=== PATIENT | male | born 1940 | race American Indian/Alaskan Native ===

== ENCOUNTER 2017-07-21 07:33 | Day surgery (SDC) | payer MEDICARE, OTHER ==
[~2017-07-21 07:33] MED LIST: Midazolam 1 MG/ML 2 ML SDV ONE; fentaNYL 100 MCG/2 ML SDV ONE
[2017-07-21] MEDS ORDERED: fentaNYL 100 MCG/2 ML SDV IV ONE ×3 (07:34→08:41)
[2017-07-21] MEDS ORDERED: Midazolam 1 MG/ML 2 ML SDV IV ONE ×3 (07:34→08:43)
[2017-07-21] MEDS ORDERED: Sodium Chloride 0.9% 10 ML Syringe FLUSH SCH (07:45)
[2017-07-21] MEDS ORDERED: Dextrose 5%-0.45% NaCl 1,000 ML IV SCH (07:45)
--- NOTE | 2017-07-21 11:02 | OR ---
DATE: 07/21/2017 PROCEDURE: Esophagogastroduodenoscopy and multiple pinch biopsies. INSTRUMENT USED: GIF-H180 Olympus video panendoscope. PREMEDICATIONS: No oral topical anesthesia used. Fentanyl 100 mcg intravenous, Versed 1.5 mg intravenous. Nasal 2 L O2 cannula. The procedure was done under pulse oximetry, BP recording, and potline monitor. INDICATION: The patient with progressive solid dysphagia, unexplained, not responsive to medical measures. Esophagogastroduodenoscopy is performed for detection of any active erosive lesions, Raines's esophagus and/or malignancy also under consideration, H. pylori status to be determined, esophageal dilatations if indicated, endoscopic hemostasis therapy if needed. DESCRIPTION OF PROCEDURE: The scope was passed with ease. Adequate visualization of the esophagus was made from proximal to distal areas. No upper esophageal lesions identified. No uphill or downhill esophageal varices. No Breanna-Lopez tear. No evidence of erosive esophagitis by [place] criteria. Large sliding hiatal hernia was noted. There was some deformity and stricture of the distal esophagus, but the tip of the scope was passed with ease to visualize the gastric mucosa. No proximal gastric varices noted. Gastric fundus examination by retroflexion showed no polypoid lesions. No gastric ulcer, malignant mass, or vascular ectasia identified. Duodenal bulb showed no ulcer. Visualized second part of the duodenum was unremarkable. Few scattered erosions were noted in the gastric antrum. Multiple pinch biopsies were taken from the gastric antrum and proximal body and sent for PyloriTek test for H. pylori, and if negative in an hour, tissues to be sent for histopathology. No bleeding was noted from any of the visualized areas at the completion of examination. Photographs of the duodenal bulb, gastric antrum, fundus, and distal esophagus. IMPRESSION: 1. Gastric antral erosions. 2. Sliding hiatal hernia. 3. Peptic esophageal stricture. The patient tolerated the procedure well. [facility] /[id number]
--- NOTE | 2017-07-21 11:02 | OR ---
DATE: 07/21/2017 PROCEDURE: Esophageal dilatation. INSTRUMENT USED: Baron Bougie dilator, Belgian size #48. PREMEDICATIONS: Done after EGD. INDICATION: Peptic esophageal stricture. DESCRIPTION OF PROCEDURE: Esophageal dilatation was done with ease using dilator Belgian size #48. No blood was noted at dilated tip after completion. IMPRESSION: Peptic esophageal stricture. The patient tolerated the procedure well. [facility] /[id number]
[2017-07-21 11:05] VITALS: BP 107/60
--- NOTE | 2017-07-21 11:11 | LETTER ---
07/21/2017 Ky Dixon MD [facility] [address] [place] [address] RE: ROMEL CAMERON : [address] Dixon: Mr. Romel Cameron had esophagogastroduodenoscopy and esophageal dilatation done today, tolerated well. I herewith send a copy of the endoscopy note and photographs for your review. He is put on omeprazole 20 mg p.o. daily. Thank you. Sincerely, MOD[facility] /[id number]
== END 2017-07-21 11:00 | disposition home or self-care (01) ==
LOC: DL.ENDO 07:33
PROVIDERS: ATTEND Internal Medicine Gastroenterology
DX: K22.2 Esophageal obstruction (principal); K44.9 Diaphragmatic hernia without obstruction or gangrene; K25.9 Gastric ulcer, unspecified as acute or chronic, without hemorrhage or perforation; E78.5 Hyperlipidemia, unspecified; I12.9 Hypertensive chronic kidney disease with stage 1 through stage 4 chronic kidney disease, or unspecified chronic kidney disease; N18.9 Chronic kidney disease, unspecified; K21.9 Gastro-esophageal reflux disease without esophagitis
CPT/HCPCS: 87077; 88305; J2250; J3010; J7042; J7050

== ENCOUNTER 2017-08-31 19:22 | Emergency (ER) | payer MEDICARE, OTHER ==
[2017-08-31 19:38] VITALS: BP 121/62
--- NOTE | 2017-08-31 19:55 | EDM.PDOC ---
ED HPI GENERAL MEDICAL PROBLEM - General Chief Complaint: Genitourinary Problem Stated Complaint: [id number] urinating blood after prostate biopsy Time Seen by Provider: 08/31/17 19:45 Source of Information: Reports: Patient History Limitations: Reports: No Limitations - History of Present Illness INITIAL COMMENTS - FREE TEXT/NARRATIVE: This 76 yo male patient reports to the ED with one episode of hematuria about 45 minutes prior to arrival in the ED. The patient reports he had a prostate biopsy 2 days ago, has been doing fine until today and had only the 1 episode of blood in his urine. The patient reports no abdominal pain and no feeling of retaining urine. Onset: Today Duration: Minutes: Severity: Mild Improves with: Reports: None Worsens with: Reports: None Associated Symptoms: Reports: No Other Symptoms - Related Data Allergies Allergy/AdvReac Type Severity Reaction Status Date / Time No Known Allergies Allergy Verified 08/31/17 19:38 Home Meds: Home Meds Calcium/Vit B12/FA/Pyridoxine [Folic Acid-Vit B6-Vit B12 Tab] 1 mg PO DAILY 09/11 [History] Carboxymethylcellulos/Glycerin [Refresh Optive Eye Drops] 1 drop EYEBOTH Q2HR PRN 09/30/14 [History] Cholecalciferol (Vitamin D3) [Vitamin D3] 2,000 units PO DAILY 09/30/14 [History ] Ferrous Sulfate 325 mg PO BIDM 09/30/14 [History] Losartan [Cozaar] 50 mg PO DAILY 09/30/14 [History] Multivitamin [Multivitamins] 2 tab PO DAILY 09/30/14 [History] Clindamycin Phosphate [Cleocin T 1% Lotion] 1 applic TOP DAILY 07/20/17 [History ] Doxepin [Doxepin HCl] 25 mg PO DAILY 07/20/17 [History] Glucosamine/Chondro Lebron A [Glucosamine-Chondroit Cplt] 1 each PO DAILY 07/20/17 [ History] Melatonin 1 mg PO DAILY PRN 07/20/17 [History] atorvaSTATin [Lipitor] 10 mg PO BEDTIME 07/20/17 [History] Past Medical History HEENT History: Reports: Macular Degeneration Other HEENT History: Upper dentures Cardiovascular History: Reports: High Cholesterol, Hypertension Gastrointestinal History: Reports: Diverticulosis, GERD, GI Bleed Genitourinary History: Reports: BPH, Renal Disease, Other (See Below) Other Genitourinary History: DX of prostate cancer. Nodule on prostate. Kidney disease. HX of amyloidosis, had stem cell transplant. Erectile dysfunction Musculoskeletal History: Reports: Osteoarthritis, Other (See Below) Other Musculoskeletal History: shoulder dislocation Neurological History: Reports: None Psychiatric History: Reports: None Endocrine/Metabolic History: Reports: None Hematologic History: Reports: Anemia Dermatologic History: Reports: None - Infectious Disease History Infectious Disease History: Reports: Mumps - Past Surgical History HEENT Surgical History: Reports: None Respiratory Surgical History: Reports: None GI Surgical History: Reports: None Male Surgical History: Reports: None Musculoskeletal Surgical History: Reports: Other (See Below) Other Musculoskeletal Surgeries/Procedures:: Ankle surgery in 1999, has pin in ankle Social & Family History - Family History Family Medical History: Noncontributory - Tobacco Use Smoking Status *Q: Never Smoker Second Hand Smoke Exposure: No - Caffeine Use Caffeine Use: Reports: Coffee, Soda, Tea Caffeine Use Comment: 4-5 cups daily - Alcohol Use Days Per Week of Alcohol Use: 0 - Recreational Drug Use Recreational Drug Use: No ED ROS GENERAL - Review of Systems Review Of Systems: ROS reveals no pertinent complaints other than HPI. ED EXAM, RENAL/ - Physical Exam Exam: See Below Exam Limited By: No Limitations General Appearance: Alert, WD/WN, No Apparent Distress Eye Exam: Bilateral Eye: EOMI, Normal Inspection, PERRL Ears: Normal External Exam, Normal Canal, Hearing Grossly Normal, Normal TMs Nose: Normal Inspection, Normal Mucosa, No Blood Throat/Mouth: Normal Inspection, Normal Lips, Normal Teeth, Normal Gums, Normal Oropharynx, Normal Voice, No Airway Compromise Head: Atraumatic, Normocephalic Neck: Normal Inspection, Supple, Non-Tender, Full Range of Motion Respiratory/Chest: No Respiratory Distress, Lungs Clear, Normal Breath Sounds, No Accessory Muscle Use, Chest Non-Tender Cardiovascular: Normal Peripheral Pulses, Regular Rate, Rhythm, No Edema, No Gallop, No JVD, No Murmur, No Rub GI/Abdominal: Normal Bowel Sounds, Soft, Non-Tender, No Organomegaly, No Distention, No Abnormal Bruit, No Mass (Male) Exam: Deferred Rectal (Males) Exam: Deferred Neurological: Alert, Oriented Psychiatric: Normal Affect, Normal Mood Skin Exam: Warm, Dry, Intact, Normal Color, No Rash Lymphatic: No Adenopathy Course - Vital Signs Last Recorded V/S: Last Vital Signs Temp 36.5 C 08/31/17 19:26 Pulse 68 08/31/17 19:26 Resp 20 08/31/17 19:26 BP 121/62 08/31/17 19:26 Pulse Ox 98 08/31/17 19:26 - Orders/Labs/Meds Orders: Active Orders 24 hr Category Date Time Status UA W/MICROSCOPIC [URIN] Stat Lab 08/31/17 20:04 Ordered Labs: Laboratory Tests 08/31/17 Range/Units 20:04 Urine Color Dark yellow (YELLOW) Urine Appearance Cloudy (CLEAR) Urine pH 6.0 (5.0-9.0) Ur Specific [place] 1.020 (1.005-1.030) Urine Protein 100 H (NEGATIVE) Urine Glucose (UA) Negative (NEGATIVE) Urine Ketones Trace H (NEGATIVE) Urine Occult Blood Large H (NEGATIVE) Urine Nitrite Negative (NEGATIVE) Urine Bilirubin Negative (NEGATIVE) Urine Urobilinogen 0.2 (0.2-1.0) mg/dL Ur Leukocyte Esterase Negative (NEGATIVE) Urine RBC Semi-packed H /HPF Urine WBC 0-5 (0-5/HPF) /HPF Ur Epithelial Cells Occasional /HPF Urine Bacteria Moderate H (0-FEW/HPF) /HPF Departure - Departure Time of Disposition: 20:39 Disposition: Home, Self-Care 01 Condition: Fair Clinical Impression: Hematuria Qualifiers: Hematuria type: unspecified type Qualified Code(s): R31.9 - Hematuria, unspecified Post-op bleeding Qualifiers: Surgical complication system/body Area: genitourinary Procedure type: genitourinary Qualified Code(s): N99.820 - Postprocedural hemorrhage of a genitourinary system organ or structure following a genitourinary system procedure - Discharge Information Instructions: Hematuria, Adult Forms: ED Department Discharge Care Plan Goals: The patient was advised of the examination and lab results during the visit. The patient was encouraged to contact his urologist in the morning. If the patient has any additional symptoms or concerns, the patient should visit his primary care facility or return to the emergency department. - My Orders Last 24 Hours: My Active Orders 08/31/17 20:04 UA W/MICROSCOPIC [URIN] Stat - Assessment/Plan Last 24 Hours: My Active Orders 08/31/17 20:04 UA W/MICROSCOPIC [URIN] Stat
== END 2017-08-31 20:45 | disposition home or self-care (01) ==
LOC: DL.ED 19:22
DX: N99.820 Postprocedural hemorrhage of a genitourinary system organ or structure following a genitourinary system procedure (principal); R31.9 Hematuria, unspecified; I10 Essential (primary) hypertension; E78.00 Pure hypercholesterolemia, unspecified; Z79.899 Other long term (current) drug therapy
CPT/HCPCS: 81001; 99282; 99283

== ENCOUNTER 2019-03-18 08:13 | Emergency (ER) | payer MEDICARE, OTHER ==
[2019-03-18 08:31] VITALS: BP 144/77; PULSE 72
--- NOTE | 2019-03-18 09:04 | EDM.PDOC ---
ED HPI GENERAL MEDICAL PROBLEM - General Chief Complaint: Lower Extremity Injury/Pain Stated Complaint: LEFT SIDE PAIN Left Hip Pain Score (Numeric/FACES): 10 - Related Data Allergies Allergy/AdvReac Type Severity Reaction Status Date / Time No Known Allergies Allergy Verified 03/18/19 08:21 Home Meds: Home Meds Calcium/Vit B12/FA/Pyridoxine [Folic Acid-Vit B6-Vit B12 Tab] 1 mg PO DAILY 09/11 [History] Carboxymethylcellulos/Glycerin [Refresh Optive Eye Drops] 1 drop EYEBOTH Q2HR PRN 09/30/14 [History] Cholecalciferol (Vitamin D3) [Vitamin D3] 2,000 units PO DAILY 09/30/14 [History ] Ferrous Sulfate 325 mg PO BIDM 09/30/14 [History] Losartan [Cozaar] 50 mg PO DAILY 09/30/14 [History] Multivitamin [Multivitamins] 1 tab PO DAILY 09/30/14 [History] Clindamycin Phosphate [Cleocin T 1% Lotion] 1 applic TOP DAILY 07/20/17 [History ] Doxepin [Doxepin HCl] 25 mg PO DAILY 07/20/17 [History] Glucosamine/Chondro Lebron A [Glucosamine-Chondroit Cplt] 1 each PO DAILY 07/20/17 [ History] Melatonin 1 mg PO BEDTIME PRN 07/20/17 [History] atorvaSTATin [Lipitor] 10 mg PO BEDTIME 07/20/17 [History] Acetaminophen 500 mg PO Q6HR PRN 03/18/19 [History] Gabapentin [Neurontin] 100 mg PO TID PRN 03/18/19 [History] Past Medical History HEENT History: Reports: Macular Degeneration Other HEENT History: Upper dentures Cardiovascular History: Reports: High Cholesterol, Hypertension Gastrointestinal History: Reports: Diverticulosis, GERD, GI Bleed Genitourinary History: Reports: BPH, Renal Disease, Other (See Below) Other Genitourinary History: DX of prostate cancer. Nodule on prostate. Kidney disease. HX of amyloidosis, had stem cell transplant. Erectile dysfunction Musculoskeletal History: Reports: Osteoarthritis, Other (See Below) Other Musculoskeletal History: shoulder dislocation Neurological History: Reports: None Psychiatric History: Reports: None Endocrine/Metabolic History: Reports: None Hematologic History: Reports: Anemia Dermatologic History: Reports: None - Infectious Disease History Infectious Disease History: Reports: Mumps - Past Surgical History HEENT Surgical History: Reports: None Respiratory Surgical History: Reports: None GI Surgical History: Reports: None Male Surgical History: Reports: None Musculoskeletal Surgical History: Reports: Other (See Below) Other Musculoskeletal Surgeries/Procedures:: Ankle surgery in 1999, has pin in ankle Social & Family History - Family History Family Medical History: Noncontributory - Tobacco Use Smoking Status *Q: Never Smoker - Caffeine Use Caffeine Use: Reports: Coffee Caffeine Use Comment: at least 4 cups daily - Recreational Drug Use Recreational Drug Use: No Course - Vital Signs Last Recorded V/S: Last Vital Signs Temp 36.6 C 03/18/19 08:27 Pulse 72 03/18/19 08:27 Resp 18 03/18/19 08:27 BP 144/77 H 03/18/19 08:27 Pulse Ox 100 03/18/19 08:27 Departure - Departure Time of Disposition: 09:01 Disposition: Home, Self-Care 01 Condition: Good Clinical Impression: Back pain of lumbar region with sciatica - Discharge Information *PRESCRIPTION DRUG MONITORING PROGRAM REVIEWED*: Not Applicable *COPY OF PRESCRIPTION DRUG MONITORING REPORT IN PATIENT VONDA: Not Applicable Instructions: Sciatica, [id number] Forms: ED Department Discharge Additional Instructions: PT prescription was given to you. Give to your Physical Therapist. Tramadol - pain medications; only take one at night. Continue gabapentin and tylenol as prescribed Heat or ice frequently. See you PCP again next week or two
--- NOTE | 2019-03-18 09:23 | EDM.PDOC ---
Scribed by Malini Coleman 03/18/19 0919 for Luisa Connors NP ED HPI GENERAL MEDICAL PROBLEM - General Chief Complaint: Lower Extremity Injury/Pain Stated Complaint: LEFT SIDE PAIN Time Seen by Provider: 03/18/19 08:35 Source of Information: Reports: Patient, RN, RN Notes Reviewed History Limitations: Reports: No Limitations - History of Present Illness INITIAL COMMENTS - FREE TEXT/NARRATIVE: Patient presents to ER with complaint of low back pain, sciatica down left leg for 1 week. He seen his primary last week and had x-rays of right hip and back. He was put on Gabapentin and has been on it for 2 days. He took Tylenol last night. He has had no trauma. Left back, hip pain into his left leg posterior and down to foot and ankle. He has had no recent trauma. It feels better sitting , worse when standing or laying flat. He has a history of hypertension. His leg feet feel weak; which he feels is due to pain; he is uses his walker. Not sleeping at night; due to pain. Onset: Gradual Duration: Constant Location: Reports: Back Quality: Reports: Ache Severity: Mild Improves with: Reports: None Worsens with: Reports: None Associated Symptoms: Reports: No Other Symptoms Left Hip Pain Score (Numeric/FACES): 10 - Related Data Allergies Allergy/AdvReac Type Severity Reaction Status Date / Time No Known Allergies Allergy Verified 03/18/19 08:21 Home Meds: Home Meds Calcium/Vit B12/FA/Pyridoxine [Folic Acid-Vit B6-Vit B12 Tab] 1 mg PO DAILY 09/11 [History] Carboxymethylcellulos/Glycerin [Refresh Optive Eye Drops] 1 drop EYEBOTH Q2HR PRN 09/30/14 [History] Cholecalciferol (Vitamin D3) [Vitamin D3] 2,000 units PO DAILY 09/30/14 [History ] Ferrous Sulfate 325 mg PO BIDM 09/30/14 [History] Losartan [Cozaar] 50 mg PO DAILY 09/30/14 [History] Multivitamin [Multivitamins] 1 tab PO DAILY 09/30/14 [History] Clindamycin Phosphate [Cleocin T 1% Lotion] 1 applic TOP DAILY 07/20/17 [History ] Doxepin [Doxepin HCl] 25 mg PO DAILY 07/20/17 [History] Glucosamine/Chondro Lebron A [Glucosamine-Chondroit Cplt] 1 each PO DAILY 07/20/17 [ History] Melatonin 1 mg PO BEDTIME PRN 07/20/17 [History] atorvaSTATin [Lipitor] 10 mg PO BEDTIME 07/20/17 [History] Acetaminophen 500 mg PO Q6HR PRN 03/18/19 [History] Gabapentin [Neurontin] 100 mg PO TID PRN 03/18/19 [History] Past Medical History HEENT History: Reports: Macular Degeneration Other HEENT History: Upper dentures Cardiovascular History: Reports: High Cholesterol, Hypertension Gastrointestinal History: Reports: Diverticulosis, GERD, GI Bleed Genitourinary History: Reports: BPH, Renal Disease, Other (See Below) Other Genitourinary History: DX of prostate cancer. Nodule on prostate. Kidney disease. HX of amyloidosis, had stem cell transplant. Erectile dysfunction Musculoskeletal History: Reports: Osteoarthritis, Other (See Below) Other Musculoskeletal History: shoulder dislocation. 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 Neurological History: Reports: None Psychiatric History: Reports: None Endocrine/Metabolic History: Reports: None Hematologic History: Reports: Anemia Dermatologic History: Reports: None - Infectious Disease History Infectious Disease History: Reports: Mumps - Past Surgical History HEENT Surgical History: Reports: None Respiratory Surgical History: Reports: None GI Surgical History: Reports: None Male Surgical History: Reports: None Musculoskeletal Surgical History: Reports: Other (See Below) Other Musculoskeletal Surgeries/Procedures:: Ankle surgery in 1999, has pin in ankle Oncologic Surgical History: Reports: Other (See Below) (stem cell transplant) Social & Family History - Family History Family Medical History: Noncontributory - Tobacco Use Smoking Status *Q: Never Smoker - Caffeine Use Caffeine Use: Reports: Coffee Caffeine Use Comment: at least 4 cups daily - Recreational Drug Use Recreational Drug Use: No Review of Systems - Review of Systems Review Of Systems: ROS reveals no pertinent complaints other than HPI. Constitutional: Reports: No Symptoms ED EXAM, GENERAL - Physical Exam Exam: See Below Exam Limited By: No Limitations General Appearance: Alert, WD/WN, No Apparent Distress Head: Atraumatic, Normocephalic Respiratory/Chest: No Respiratory Distress, Lungs Clear, Normal Breath Sounds, No Accessory Muscle Use, Chest Non-Tender Cardiovascular: Normal Peripheral Pulses, Regular Rate, Rhythm, No Edema, No Gallop, No JVD, No Murmur, No Rub GI/Abdominal: Normal Bowel Sounds, Soft, Non-Tender, No Organomegaly, No Distention, No Abnormal Bruit, No Mass Back Exam: Other (5/5 psoas, knee and ankle. Sensation intact. No pain with palpation of the left hip. Pain down left leg begins when standing. ) Extremities: Normal Inspection Skin Exam: Warm, Dry Course - Vital Signs Last Recorded V/S: Last Vital Signs Temp 36.6 C 03/18/19 08:27 Pulse 72 03/18/19 08:27 Resp 18 03/18/19 08:27 BP 144/77 H 03/18/19 08:27 Pulse Ox 100 03/18/19 08:27 - Re-Assessments/Exams Free Text/Narrative Re-Assessment/Exam: 03/18/19 09:21 He has had left hip and lumbar xrays per patient at his PCP; Im not able to view those records. Non tender to palpate back or left hip. I feel he needs a little more time on his gabapentin and then gave him 4 tabs of tramadol to use at night only until his gabapentin start to work. I ordered PT and he is to return to his PCP. Departure - Departure Time of Disposition: 09:23 Disposition: Home, Self-Care 01 Clinical Impression: Back pain of lumbar region with sciatica - Discharge Information Instructions: Sciatica, [id number] Forms: ED Department Discharge Additional Instructions: PT prescription was given to you. Give to your Physical Therapist. Tramadol - pain medications; only take one at night. Continue gabapentin and tylenol as prescribed Heat or ice frequently. See you PCP again next week or two I have read and agree with the documentation that has been completed regarding this visit. By signing this record, I attest that the documentation was completed in my physical presence and is an accurate record of the encounter.
== END 2019-03-18 09:25 | disposition home or self-care (01) ==
LOC: DL.ED 08:13
DX: M54.42 Lumbago with sciatica, left side (principal); E78.00 Pure hypercholesterolemia, unspecified; I10 Essential (primary) hypertension; D64.9 Anemia, unspecified; Z79.899 Other long term (current) drug therapy
CPT/HCPCS: 99283

== ENCOUNTER 2019-06-10 00:08 | Emergency (ER) | payer MEDICARE, OTHER ==
[2019-06-10 00:18] VITALS: BP 135/81; PULSE 59
[2019-06-10] MEDS ORDERED: LORazepam 1 MG Tab PO ONE (00:18)
--- NOTE | 2019-06-10 00:24 | EDM.PDOC ---
ED HPI GENERAL MEDICAL PROBLEM - General Chief Complaint: General Stated Complaint: AMBULANCE Time Seen by Provider: 06/10/19 00:22 Source of Information: Reports: Patient History Limitations: Reports: No Limitations - History of Present Illness INITIAL COMMENTS - FREE TEXT/NARRATIVE: states vomited x 3 tonight, hand feeling numb and shaky. no CP/SOB/STEWARD. feels nauseous and not well. - Related Data Allergies Allergy/AdvReac Type Severity Reaction Status Date / Time No Known Allergies Allergy Verified 06/10/19 00:18 Home Meds: Home Meds Jakob/Vit B12/Folic Acid/Vit B6 [Folic Acid-Vit B6-Vit B12 Tab] 1 mg PO DAILY 09/11 [History] Carboxymethylcellulos/Glycerin [Refresh Optive Eye Drops] 1 drop EYEBOTH Q2HR PRN 09/30/14 [History] Cholecalciferol (Vitamin D3) [Vitamin D3] 2,000 units PO DAILY 09/30/14 [History ] Ferrous Sulfate 325 mg PO BIDM 09/30/14 [History] Losartan [Cozaar] 50 mg PO DAILY 09/30/14 [History] Multivitamin [Multivitamins] 1 tab PO DAILY 09/30/14 [History] Clindamycin Phosphate [Cleocin T 1% Lotion] 1 applic TOP DAILY 07/20/17 [History ] Doxepin [Doxepin HCl] 25 mg PO DAILY 07/20/17 [History] Glucosamine/Chondro Lebron A [Glucosamine-Chondroit Cplt] 1 each PO DAILY 07/20/17 [ History] Melatonin 1 mg PO BEDTIME PRN 07/20/17 [History] atorvaSTATin [Lipitor] 10 mg PO BEDTIME 07/20/17 [History] Acetaminophen 500 mg PO Q6HR PRN 03/18/19 [History] Gabapentin [Neurontin] 100 mg PO TID PRN 03/18/19 [History] Past Medical History HEENT History: Reports: Macular Degeneration Other HEENT History: Upper dentures Cardiovascular History: Reports: High Cholesterol, Hypertension Gastrointestinal History: Reports: Diverticulosis, GERD, GI Bleed Genitourinary History: Reports: BPH, Renal Disease, Other (See Below) Other Genitourinary History: DX of prostate cancer. Nodule on prostate. Kidney disease. HX of amyloidosis, had stem cell transplant. Erectile dysfunction Musculoskeletal History: Reports: Osteoarthritis, Other (See Below) Other Musculoskeletal History: shoulder dislocation. 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 Neurological History: Reports: None Psychiatric History: Reports: None Endocrine/Metabolic History: Reports: None Hematologic History: Reports: Anemia Dermatologic History: Reports: None - Infectious Disease History Infectious Disease History: Reports: Mumps - Past Surgical History HEENT Surgical History: Reports: None Respiratory Surgical History: Reports: None GI Surgical History: Reports: None Male Surgical History: Reports: None Musculoskeletal Surgical History: Reports: Other (See Below) Other Musculoskeletal Surgeries/Procedures:: Ankle surgery in 1999, has pin in ankle Oncologic Surgical History: Reports: Other (See Below) (stem cell transplant) Social & Family History - Family History Family Medical History: Noncontributory - Caffeine Use Caffeine Use: Reports: Coffee Caffeine Use Comment: at least 4 cups daily ED ROS GENERAL - Review of Systems Review Of Systems: Comprehensive ROS is negative, except as noted in HPI. ED EXAM, GENERAL - Physical Exam Exam: See Below Exam Limited By: No Limitations General Appearance: Alert, WD/WN, Anxious, Other (highly talkative, ) Eye Exam: Bilateral Eye: PERRL (pupils ER @ 4mm) Ears: Hearing Grossly Normal Throat/Mouth: Normal Voice, No Airway Compromise Head: Atraumatic Neck: Non-Tender, Full Range of Motion Respiratory/Chest: No Respiratory Distress Cardiovascular: Regular Rate, Rhythm GI/Abdominal: Soft, Non-Tender Neurological: Alert, Oriented, Normal Cognition, Normal Gait, No Motor/Sensory Deficits Psychiatric: Anxious Skin Exam: Warm, Dry, Normal Color Lymphatic: No Adenopathy Course - Vital Signs Last Recorded V/S: Last Vital Signs Temp 36.6 C 06/10/19 00:13 Pulse 59 L 06/10/19 00:13 Resp 16 06/10/19 00:13 BP 135/81 06/10/19 00:13 Pulse Ox 100 06/10/19 00:13 - Orders/Labs/Meds Labs: Laboratory Tests 06/10/19 06/10/19 Range/Units 00:30 00:30 WBC 7.0 (5.0-10.0) 10^3/uL RBC 3.12 L (4.6-6.2) 10^6/uL Hgb 10.5 L (14.0-18.0) g/dL Hct 32.3 L (40.0-54.0) % MCV 103.5 H (80-100) fL MCH 33.7 (27.0-34.0) pg MCHC 32.5 L (33.0-35.0) g/dL Plt Count 141 L (150-450) 10^3/uL Neut % (Auto) 65.1 (42.2-75.2) % Lymph % (Auto) 23.6 (20.5-50.1) % [place] % (Auto) 7.5 (2-8) % Eos % (Auto) 3.4 H (1.0-3.0) % Baso % (Auto) 0.4 (0.0-1.0) % Sodium 143 (135-145) mmol/L Potassium 4.1 (3.6-5.0) mmol/L Chloride 107 (101-111) mmol/L Carbon Dioxide 28.0 (21.0-31.0) mmol/L Anion Gap 12.1 BUN 30 H (7-18) mg/dL Creatinine 1.5 H (0.6-1.3) mg/dL Est Cr Clr Drug Dosing 40.56 mL/min Estimated GFR (MDRD) 45 BUN/Creatinine Ratio 20.00 Glucose 100 (74-105) mg/dL Calcium 9.1 (8.4-10.2) mg/dl Total Bilirubin 0.7 (0.2-1.0) mg/dL AST 19 (10-42) IU/L ALT 17 (10-60) IU/L Alkaline Phosphatase 79 (42-121) IU/L Troponin I 0.02 (0.00-0.02) ng/ml Total Protein 6.8 (6.7-8.2) g/dl Albumin 3.9 (3.2-5.5) g/dl Globulin 2.9 Albumin/Globulin Ratio 1.34 Meds: Medications Discontinued Medications Generic Name Dose Route Start Last Admin Trade Name Freq PRN Reason Stop Dose Admin Lorazepam 1 mg 06/10/19 00:18 06/10/19 00:28 Ativan PO 06/10/19 00:19 1 mg ONETIME ONE Administration - Re-Assessments/Exams Free Text/Narrative Re-Assessment/Exam: 06/10/19 01:17 results discussed with pt who is feeling fine now. states has been cleaning house and over worked himself. Departure - Departure Time of Disposition: 01:18 Disposition: Home, Self-Care 01 Condition: Good Clinical Impression: Reaction, situational, acute, to stress - Discharge Information Forms: ED Department Discharge Additional Instructions: 1) rest 2) avoid excess activities 3) follow up at clinic Sepsis Event Note - Evaluation Sepsis Screening Result: No Definite Risk - Focused Exam Vital Signs: Vital Signs Temp Pulse Resp BP Pulse Ox 06/10/19 00:13 36.6 C 59 L 16 135/81 100 Date Exam was Performed: 06/10/19 Time Exam was Performed: 01:16
[2019-06-10 00:59] LABS: ANION GAP 12.1
== END 2019-06-10 01:28 | disposition home or self-care (01) ==
LOC: DL.ED 00:08
DX: F43.9 Reaction to severe stress, unspecified (principal); I10 Essential (primary) hypertension; E78.00 Pure hypercholesterolemia, unspecified; K21.9 Gastro-esophageal reflux disease without esophagitis; Z79.899 Other long term (current) drug therapy
CPT/HCPCS: 36415; 80053; 84484; 85025; 99284; A9270

== ENCOUNTER 2019-09-21 14:39 | Emergency (ER) | payer MEDICARE, OTHER ==
[2019-09-21] MEDS ORDERED: Sodium Chloride 0.9% 10 ML Syringe FLUSH PRN (14:42)
[2019-09-21 15:08] VITALS: BP 81/52; PULSE 91
--- NOTE | 2019-09-21 15:10 | EDM.PDOC ---
ED HPI GENERAL MEDICAL PROBLEM - General Chief Complaint: General Stated Complaint: NAUSEA, WEAK, SHORTNESS OF BREATH, DHIREA Time Seen by Provider: 09/21/19 15:10 Source of Information: Reports: Patient, Family, RN, RN Notes Reviewed History Limitations: Reports: No Limitations - History of Present Illness INITIAL COMMENTS - FREE TEXT/NARRATIVE: Patient presents to ER with complaint of weight loss over the past few months, nausea, vomiting, stomach pain, diarrhea. Patient states he has noticed some blood in the diarrhea. States he has no appetite and is unable to keep food down. Patient states he has been doctoring with his primary care provider feels nothing is being done. Patient does state he does have an appointment with Dr. Peñaloza next week for a hiatal hernia. Patient states she Onset: Gradual - Related Data Allergies Allergy/AdvReac Type Severity Reaction Status Date / Time No Known Allergies Allergy Verified 09/21/19 15:04 Home Meds: Home Meds Jakob/Vit B12/Folic Acid/Vit B6 [Folic Acid-Vit B6-Vit B12 Tab] 1 mg PO DAILY 09/11 [History] Carboxymethylcellulos/Glycerin [Refresh Optive Eye Drops] 1 drop EYEBOTH Q2HR PRN 09/30/14 [History] Cholecalciferol (Vitamin D3) [Vitamin D3] 2,000 units PO DAILY 09/30/14 [History ] Ferrous Sulfate 325 mg PO BIDM 09/30/14 [History] Losartan [Cozaar] 50 mg PO DAILY 09/30/14 [History] Multivitamin [Multivitamins] 1 tab PO DAILY 09/30/14 [History] Clindamycin Phosphate [Cleocin T 1% Lotion] 1 applic TOP DAILY 07/20/17 [History ] Doxepin [Doxepin HCl] 25 mg PO DAILY 07/20/17 [History] Glucosamine/Chondro Lebron A [Glucosamine-Chondroit Cplt] 1 each PO DAILY 07/20/17 [ History] Melatonin 1 mg PO BEDTIME PRN 07/20/17 [History] atorvaSTATin [Lipitor] 10 mg PO BEDTIME 07/20/17 [History] Acetaminophen 500 mg PO Q6HR PRN 03/18/19 [History] Gabapentin [Neurontin] 100 mg PO TID PRN 03/18/19 [History] Past Medical History HEENT History: Reports: Macular Degeneration Other HEENT History: Upper dentures Cardiovascular History: Reports: High Cholesterol, Hypertension Gastrointestinal History: Reports: Diverticulosis, GERD, GI Bleed Genitourinary History: Reports: BPH, Renal Disease, Other (See Below) Other Genitourinary History: DX of prostate cancer. Nodule on prostate. Kidney disease. HX of amyloidosis, had stem cell transplant. Erectile dysfunction Musculoskeletal History: Reports: Osteoarthritis, Other (See Below) Other Musculoskeletal History: shoulder dislocation. 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 Neurological History: Reports: None Psychiatric History: Reports: None Endocrine/Metabolic History: Reports: None Hematologic History: Reports: Anemia Dermatologic History: Reports: None - Infectious Disease History Infectious Disease History: Reports: Mumps - Past Surgical History HEENT Surgical History: Reports: None Respiratory Surgical History: Reports: None GI Surgical History: Reports: None Male Surgical History: Reports: None Musculoskeletal Surgical History: Reports: Other (See Below) Other Musculoskeletal Surgeries/Procedures:: Ankle surgery in 1999, has pin in ankle Oncologic Surgical History: Reports: Other (See Below) Social & Family History - Family History Family Medical History: Noncontributory - Caffeine Use Caffeine Use: Reports: Coffee Caffeine Use Comment: at least 4 cups daily ED ROS GENERAL - Review of Systems Review Of Systems: Comprehensive ROS is negative, except as noted in HPI. ED EXAM, GENERAL - Physical Exam Exam: See Below Exam Limited By: No Limitations General Appearance: Alert, WD/WN, No Apparent Distress Eye Exam: Bilateral Eye: EOMI, Normal Inspection Ears: Normal External Exam, Hearing Grossly Normal Nose: Normal Inspection Throat/Mouth: Normal Inspection, Normal Voice, No Airway Compromise Head: Atraumatic, Normocephalic Neck: Normal Inspection, Supple, Non-Tender, Full Range of Motion Respiratory/Chest: No Respiratory Distress, Lungs Clear, No Accessory Muscle Use , Chest Non-Tender, Decreased Breath Sounds Cardiovascular: Normal Peripheral Pulses, Regular Rate, Rhythm, No Edema, No Gallop, No JVD, No Murmur, No Rub Peripheral Pulses: 2+: Radial (L), Radial (R) GI/Abdominal: Normal Bowel Sounds, Soft, Non-Tender, No Organomegaly, No Distention, No Abnormal Bruit, No Mass, Pelvis Stable (Male) Exam: Deferred Back Exam: Normal Inspection, Full Range of Motion, NT Extremities: Normal Inspection, Normal Range of Motion, Non-Tender, Normal Capillary Refill, No Pedal Edema Neurological: Alert, Oriented, CN II-XII Intact, Normal Cognition, Normal Gait, Normal Reflexes, No Motor/Sensory Deficits, Memory Loss Remote Events, Other Psychiatric: Normal Affect, Normal Mood Skin Exam: Warm, Dry, Intact, Normal Color, No Rash Lymphatic: No Adenopathy Course - Vital Signs Last Recorded V/S: Last Vital Signs Temp 97.2 F 09/21/19 15:04 Pulse 91 09/21/19 15:04 Resp 16 09/21/19 15:04 BP 81/52 L 09/21/19 15:04 Pulse Ox 99 09/21/19 15:04 - Orders/Labs/Meds Orders: Active Orders 24 hr Category Date Time Status EKG Documentation Completion [RC] STAT Care 09/21/19 15:25 Active Peripheral IV Care [RC] . DIRECTED Care 09/21/19 14:42 Active UA RFX PAZ AND CULT IF INDIC [URIN] Stat Lab 09/21/19 14:42 Ordered Lactated Ringers [Ringers, Lactated] 1,000 ml Med 09/21/19 16:54 Active IV .BOLUS Sodium Chloride 0.9% [Saline Flush] Med 09/21/19 14:42 Active 10 ml FLUSH ASDIRECTED PRN Peripheral IV Insertion Adult [OM.PC] Stat Oth 09/21/19 14:42 Ordered Medication Orders Lactated Ringer's (Ringers, Lactated) 1,000 mls @ 150 mls/hr IV .BOLUS ONE Stop: 09/21/19 23:33 Last Admin: 09/21/19 17:01 Dose: 150 mls/hr Sodium Chloride (Saline Flush) 10 ml FLUSH ASDIRECTED PRN PRN Reason: Keep Vein Open Last Admin: 09/21/19 16:15 Dose: 10 ml Labs: Laboratory Tests 09/21/19 09/21/19 Range/Units 14:55 14:55 WBC 7.5 (5.0-10.0) 10^3/uL RBC 2.76 L (4.6-6.2) 10^6/uL Hgb 9.3 L (14.0-18.0) g/dL Hct 27.9 L (40.0-54.0) % MCV 101.1 H (80-100) fL MCH 33.7 (27.0-34.0) pg MCHC 33.3 (33.0-35.0) g/dL Plt Count 167 (150-450) 10^3/uL Neut % (Auto) 61.8 (42.2-75.2) % Lymph % (Auto) 26.6 (20.5-50.1) % [place] % (Auto) 9.4 H (2-8) % Eos % (Auto) 1.9 (1.0-3.0) % Baso % (Auto) 0.3 (0.0-1.0) % Sodium 143 (136-145) mmol/L Potassium 4.0 (3.5-5.1) mmol/L Chloride 105 (98-107) mmol/L Carbon Dioxide 24 (21-32) mmol/L Anion Gap 18.0 H (7-13) mEq/L BUN 43 H (7-18) mg/dL Creatinine 1.95 H (0.70-1.30) mg/dL Est Cr Clr Drug Dosing 30.21 mL/min Estimated GFR (MDRD) 33 BUN/Creatinine Ratio 22.1 (No establ ref range) Glucose 127 H (74-99) mg/dL Calcium 8.9 (8.5-10.1) mg/dL Total Bilirubin 0.3 (0.2-1.0) mg/dL AST 17 (15-37) U/L ALT 23 (16-63) U/L Alkaline Phosphatase 75 (46-116) U/L Troponin I < 0.017 (0.000-0.056) ng/mL Total Protein 6.9 (6.4-8.2) g/dL Albumin 3.4 (3.4-5.0) g/dL Globulin 3.5 Albumin/Globulin Ratio 1.0 Meds: Medications Generic Name Dose Route Start Last Admin Trade Name Freq PRN Reason Stop Dose Admin Lactated Ringer's 1,000 mls @ 150 mls/hr 09/21/19 16:54 09/21/19 17:01 Ringers, Lactated IV 09/21/19 23:33 150 mls/hr .BOLUS ONE Administration Sodium Chloride 10 ml 09/21/19 14:42 09/21/19 16:15 Saline Flush FLUSH 10 ml ASDIRECTED PRN Administration Keep Vein Open Discontinued Medications Generic Name Dose Route Start Last Admin Trade Name Freq PRN Reason Stop Dose Admin Pantoprazole Sodium 80 mg 09/21/19 16:54 09/21/19 17:01 Protonix Iv IVPUSH 09/21/19 16:55 80 mg .BOLUS ONE Administration - Re-Assessments/Exams Free Text/Narrative Re-Assessment/Exam: 09/21/19 17:19 Discussed pt case with Dr. Linn who agreed to accept the patient for transfer to [facility]. Departure - Departure Time of Disposition: 17:20 Disposition: DC/Tfer to [facility] 02 Condition: Fair Clinical Impression: GI bleed Qualifiers: GI bleed type/associated pathology: melena Qualified Code(s): K92.1 - Melena - Discharge Information *PRESCRIPTION DRUG MONITORING PROGRAM REVIEWED*: No *COPY OF PRESCRIPTION DRUG MONITORING REPORT IN PATIENT VONDA: No Forms: ED Department Discharge, Interfacility Transfer EMTALA Sepsis Event Note - Evaluation Sepsis Screening Result: No Definite Risk - Focused Exam Vital Signs: Vital Signs Temp Pulse Resp BP Pulse Ox 09/21/19 15:04 97.2 F 91 16 81/52 L 99 Date Exam was Performed: 09/21/19 Time Exam was Performed: 17:19 - My Orders Last 24 Hours: My Active Orders 09/21/19 14:42 Peripheral IV Care [RC] . DIRECTED UA RFX PAZ AND CULT IF INDIC [URIN] Stat Sodium Chloride 0.9% [Saline Flush] 10 ml FLUSH ASDIRECTED PRN Peripheral IV Insertion Adult [OM.PC] Stat 09/21/19 15:25 EKG Documentation Completion [RC] STAT 09/21/19 16:54 Lactated Ringers [Ringers, Lactated] 1,000 ml IV .BOLUS - Assessment/Plan Last 24 Hours: My Active Orders 09/21/19 14:42 Peripheral IV Care [RC] . DIRECTED UA RFX PAZ AND CULT IF INDIC [URIN] Stat Sodium Chloride 0.9% [Saline Flush] 10 ml FLUSH ASDIRECTED PRN Peripheral IV Insertion Adult [OM.PC] Stat 09/21/19 15:25 EKG Documentation Completion [RC] STAT 09/21/19 16:54 Lactated Ringers [Ringers, Lactated] 1,000 ml IV .BOLUS
[2019-09-21 15:32] LABS: CHLORIDE,CL 105 mmol/L (98-107); SODIUM,NA 143 mmol/L (136-145)
[2019-09-21] MEDS ORDERED: Lactated Ringers 1,000 ML IV ONE (16:54)
[2019-09-21] MEDS ORDERED: Pantoprazole 40 MG Vial IVPUSH ONE (16:54)
== END 2019-09-21 17:27 ==
LOC: DL.ED 14:39
DX: K92.1 Melena (principal); I10 Essential (primary) hypertension; E78.00 Pure hypercholesterolemia, unspecified; M19.90 Unspecified osteoarthritis, unspecified site; Z79.899 Other long term (current) drug therapy
CPT/HCPCS: 36415; 80053; 82272; 84484; 85025; 93005; 96374; 99284; 99285-25; C9113; J7120

== ENCOUNTER 2020-08-06 05:01 | Emergency (ER) | payer MEDICARE, OTHER ==
--- NOTE | 2020-08-06 07:19 | EDM.PDOC ---
ED HPI GENERAL MEDICAL PROBLEM - General Chief Complaint: Gastrointestinal Problem Stated Complaint: VOMMITING/DIARRHEA DOESNT FEEL WELL Time Seen by Provider: 08/06/20 07:18 Source of Information: Reports: Patient, Old Records, RN, RN Notes Reviewed History Limitations: Reports: No Limitations - History of Present Illness INITIAL COMMENTS - FREE TEXT/NARRATIVE: Pt presents to ER from home by POV with c/o onset of nausea, vomiting, and diarrhea with generalized abdominal cramping that began a couple of hours after eating potato soup at a local diner yesterday afternoon. Pt states it began with cramping and nausea, followed by vomiting, and then the diarrhea began. Pt currently complains of frequent diarrhea with liquid stool, and some nausea, but has not vomited for a couple of hours. Pt denies fever, chills, chest pain, cough, dysuria, bloody/black/melanotic stools. No one else at home has been ill with similar symptoms recently. Onset: Gradual Onset Date: 08/05/20 Duration: Constant, Improving Location: Reports: Abdomen Quality: Reports: Other (Cramping) Severity: Severe Improves with: Reports: None Worsens with: Reports: Eating Associated Symptoms: Reports: No Other Symptoms - Related Data Allergies Allergy/AdvReac Type Severity Reaction Status Date / Time No Known Allergies Allergy Verified 08/06/20 07:18 Home Meds: Home Meds Jakob/Vit B12/Folic Acid/Vit B6 [Folic Acid-Vit B6-Vit B12 Tab] 1 mg PO DAILY 09/30/14 [History] Carboxymethylcellulos/Glycerin [Refresh Optive Eye Drops] 1 drop EYEBOTH Q2HR PRN 09/30/14 [History] Cholecalciferol (Vitamin D3) [Vitamin D3] 2,000 units PO DAILY 09/30/14 [History] Ferrous Sulfate 325 mg PO BIDM 09/30/14 [History] Losartan [Cozaar] 50 mg PO DAILY 09/30/14 [History] Multivitamin [Multivitamins] 1 tab PO DAILY 09/30/14 [History] Clindamycin Phosphate [Cleocin T 1% Lotion] 1 applic TOP DAILY 07/20/17 [History] Doxepin [Doxepin HCl] 25 mg PO DAILY 07/20/17 [History] Glucosamine/Chondro Lebron A [Glucosamine-Chondroit Cplt] 1 each PO DAILY 07/20/17 [History] Melatonin 1 mg PO BEDTIME PRN 07/20/17 [History] atorvaSTATin [Lipitor] 10 mg PO BEDTIME 07/20/17 [History] Acetaminophen 500 mg PO Q6HR PRN 03/18/19 [History] Gabapentin [Neurontin] 100 mg PO TID PRN 03/18/19 [History] Past Medical History HEENT History: Reports: Macular Degeneration Other HEENT History: Upper dentures Cardiovascular History: Reports: High Cholesterol, Hypertension Gastrointestinal History: Reports: Diverticulosis, GERD, GI Bleed Genitourinary History: Reports: BPH, Renal Disease, Other (See Below) Other Genitourinary History: DX of prostate cancer. Nodule on prostate. Kidney disease. HX of amyloidosis, had stem cell transplant. Erectile dysfunction Musculoskeletal History: Reports: Osteoarthritis, Other (See Below) Other Musculoskeletal History: shoulder dislocation. 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 Neurological History: Reports: None Psychiatric History: Reports: None Endocrine/Metabolic History: Reports: None Hematologic History: Reports: Anemia Dermatologic History: Reports: None - Infectious Disease History Infectious Disease History: Reports: Mumps - Past Surgical History HEENT Surgical History: Reports: None Respiratory Surgical History: Reports: None GI Surgical History: Reports: None Male Surgical History: Reports: None Musculoskeletal Surgical History: Reports: Other (See Below) Other Musculoskeletal Surgeries/Procedures:: Ankle surgery in 1999, has pin in ankle Oncologic Surgical History: Reports: Other (See Below) Social & Family History - Family History Family Medical History: No Pertinent Family History - Caffeine Use Caffeine Use: Reports: Coffee Caffeine Use Comment: at least 4 cups daily - Living Situation & Occupation Living situation: Reports: , Alone Occupation: Retired ED ROS GENERAL - Review of Systems Review Of Systems: Comprehensive ROS is negative, except as noted in HPI. ED EXAM, GI/ABD - Physical Exam Exam: See Below Exam Limited By: No Limitations General Appearance: Alert, WD/WN, No Apparent Distress Eyes: Bilateral: Normal Appearance (No scleral icterus) Nose: Normal Inspection, Normal Mucosa, No Blood Throat/Mouth: Normal Lips, Normal Voice, No Airway Compromise, Other (Dry oral membranes) Head: Atraumatic, Normocephalic Neck: Normal Inspection, Supple, Non-Tender, Full Range of Motion Respiratory/Chest: No Respiratory Distress, Lungs Clear, Normal Breath Sounds, No Accessory Muscle Use, Chest Non-Tender Cardiovascular: Normal Peripheral Pulses, Regular Rate, Rhythm, No Edema, No Murmur GI/Abdominal Exam: Normal Bowel Sounds, Soft, No Organomegaly, No Distention, Tender (Mild generalized abdominal tenderness, worse at epigastric, LUQ, and LLQ). No: Guarding, Rigid, Rebound (Male) Exam: Deferred Rectal (Males) Exam: Deferred Back Exam: Normal Inspection. No: CVA Tenderness (L), CVA Tenderness (R) Extremities: Normal Range of Motion, Non-Tender, No Pedal Edema Neurological: Alert, Oriented, Normal Cognition, No Motor/Sensory Deficits Psychiatric: Normal Mood Skin Exam: Warm, Dry, Intact, Normal Color, No Rash Course - Vital Signs Last Recorded V/S: Last Vital Signs Temp 96.8 F L 08/06/20 07:18 Pulse 86 08/06/20 07:18 Resp 16 08/06/20 07:18 BP 128/83 08/06/20 07:18 Pulse Ox 100 08/06/20 07:18 - Orders/Labs/Meds Orders: Active Orders 24 hr Category Date Time Status Peripheral IV Care [RC] . DIRECTED Care 08/06/20 07:25 Active Sodium Chloride 0.9% [Normal Saline] 1,000 ml Med 08/06/20 07:25 Active IV .BOLUS Sodium Chloride 0.9% [Saline Flush] Med 08/06/20 07:24 Active 10 ml FLUSH ASDIRECTED PRN Peripheral IV Insertion Adult [OM.PC] Stat Oth 08/06/20 07:25 Ordered Labs: Laboratory Tests 08/06/20 08/06/20 Range/Units 07:30 07:30 WBC 7.8 (5.0-10.0) 10^3/uL RBC 3.44 L (4.6-6.2) 10^6/uL Hgb 11.3 L D (14.0-18.0) g/dL Hct 35.0 L (40.0-54.0) % MCV 101.7 H (80-100) fL MCH 32.8 (27.0-34.0) pg MCHC 32.3 L (33.0-35.0) g/dL Plt Count 155 (150-450) 10^3/uL Neut % (Auto) 92.8 H (42.2-75.2) % Lymph % (Auto) 3.3 L (20.5-50.1) % [place] % (Auto) 3.5 (2-8) % Eos % (Auto) 0.3 L (1.0-3.0) % Baso % (Auto) 0.1 (0.0-1.0) % Sodium 143 (136-145) mmol/L Potassium 4.8 (3.5-5.1) mmol/L Chloride 106 (98-107) mmol/L Carbon Dioxide 23 (21-32) mmol/L Anion Gap 18.8 H (7-13) mEq/L BUN 37 H (7-18) mg/dL Creatinine 1.96 H (0.70-1.30) mg/dL Est Cr Clr Drug Dosing 27.64 mL/min Estimated GFR (MDRD) 33 BUN/Creatinine Ratio 18.9 (No establ ref range) Glucose 126 H (74-99) mg/dL Calcium 8.8 (8.5-10.1) mg/dL Total Bilirubin 0.5 (0.2-1.0) mg/dL AST 16 (15-37) U/L ALT 23 (16-63) U/L Alkaline Phosphatase 86 (46-116) U/L C-Reactive Protein 2.8 H (0.0-0.9) mg/dL Total Protein 7.5 (6.4-8.2) g/dL Albumin 3.6 (3.4-5.0) g/dL Globulin 3.9 Albumin/Globulin Ratio 0.9 Amylase 197 H (25-115) U/L Lipase 573 H (73-393) U/L Departure - Departure Time of Disposition: 08:12 Disposition: Home, Self-Care 01 Condition: Good Clinical Impression: Food poisoning, Dehydration - Discharge Information *PRESCRIPTION DRUG MONITORING PROGRAM REVIEWED*: Not Applicable *COPY OF PRESCRIPTION DRUG MONITORING REPORT IN PATIENT VONDA: Not Applicable Instructions: Food Poisoning, [id number], Dehydration, Adult, [id number] Forms: ED Department Discharge Additional Instructions: Rx: Zofran 4mg Rx: Lomotil Drink plenty of water or Pedialyte. Follow up in clinic if not improved in 24 hours. Sepsis Event Note (ED) - Focused Exam Vital Signs: Vital Signs Temp Pulse Resp BP Pulse Ox 08/06/20 07:18 96.8 F L 86 16 128/83 100 - My Orders Last 24 Hours: My Active Orders 08/06/20 07:24 Sodium Chloride 0.9% [Saline Flush] 10 ml FLUSH ASDIRECTED PRN 08/06/20 07:25 Peripheral IV Care [RC] . DIRECTED Sodium Chloride 0.9% [Normal Saline] 1,000 ml IV .BOLUS Peripheral IV Insertion Adult [OM.PC] Stat - Assessment/Plan Last 24 Hours: My Active Orders 08/06/20 07:24 Sodium Chloride 0.9% [Saline Flush] 10 ml FLUSH ASDIRECTED PRN 08/06/20 07:25 Peripheral IV Care [RC] . DIRECTED Sodium Chloride 0.9% [Normal Saline] 1,000 ml IV .BOLUS Peripheral IV Insertion Adult [OM.PC] Stat
[2020-08-06 07:20] VITALS: BP 128/83; PULSE 86
[2020-08-06] MEDS ORDERED: Sodium Chloride 0.9% 10 ML Syringe FLUSH PRN (07:24)
[2020-08-06] MEDS ORDERED: Sodium Chloride 0.9% 1,000 ML IV ONE (07:25)
[2020-08-06] MEDS ORDERED: Ondansetron 4 MG/2 ML SDV IV ONE (07:25)
[2020-08-06 07:57] LABS: ANION GAP 18.8 mEq/L (7-13)
== END 2020-08-06 08:23 | disposition home or self-care (01) ==
LOC: DL.ED 05:01
DX: A05.9 Bacterial foodborne intoxication, unspecified (principal); E86.0 Dehydration; E78.00 Pure hypercholesterolemia, unspecified; I10 Essential (primary) hypertension; Z79.899 Other long term (current) drug therapy
CPT/HCPCS: 36415; 80053; 82150; 83690; 85025; 86140; 99284; J2405; J7030; 99283

== ENCOUNTER 2021-01-10 00:39 | Emergency (ER) | payer MEDICARE, OTHER ==
[2021-01-10] MEDS ORDERED: Ondansetron 4 MG/2 ML SDV IVPUSH ONE (00:55)
[2021-01-10 00:57] VITALS: BP 140/110; PULSE 62
[2021-01-10 01:17] LABS: ANION GAP 15.9 mEq/L (7-13)
--- NOTE | 2021-01-10 01:22 | EDM.PDOC ---
ED HPI GENERAL MEDICAL PROBLEM - General Chief Complaint: Gastrointestinal Problem Stated Complaint: POSSIBLE FOOD POISONING Time Seen by Provider: 01/10/21 00:55 Source of Information: Reports: Patient History Limitations: Reports: No Limitations - History of Present Illness INITIAL COMMENTS - FREE TEXT/NARRATIVE: This 80 yo male patient was brought to the ED due to nausea/vomiting. The patient reports he ate a mead, cheese and fernandez sandwich last night at about 2200. The patient reports he had to run to the bathroom 2 times after that and also had a very dark bowel movement. The patient reports he continues to feel nauseated. Onset Date: 01/09/21 Duration: Constant Location: Reports: Abdomen Quality: Reports: Other Severity: Moderate Improves with: Reports: None Worsens with: Reports: None Context: Reports: Other Associated Symptoms: Reports: No Other Symptoms - Related Data Allergies Allergy/AdvReac Type Severity Reaction Status Date / Time No Known Allergies Allergy Verified 08/06/20 07:18 Home Meds: Home Meds Jakob/Vit B12/Folic Acid/Vit B6 [Folic Acid-Vit B6-Vit B12 Tab] 1 mg PO DAILY 09/30/14 [History] Carboxymethylcellulos/Glycerin [Refresh Optive Eye Drops] 1 drop EYEBOTH Q2HR PRN 09/30/14 [History] Cholecalciferol (Vitamin D3) [Vitamin D3] 2,000 units PO DAILY 09/30/14 [History] Ferrous Sulfate 325 mg PO BIDM 09/30/14 [History] Losartan [Cozaar] 50 mg PO DAILY 09/30/14 [History] Multivitamin [Multivitamins] 1 tab PO DAILY 09/30/14 [History] Clindamycin Phosphate [Cleocin T 1% Lotion] 1 applic TOP DAILY 07/20/17 [History] Doxepin [Doxepin HCl] 25 mg PO DAILY 07/20/17 [History] Glucosamine/Chondro Lebron A [Glucosamine-Chondroit Cplt] 1 each PO DAILY 07/20/17 [History] Melatonin 1 mg PO BEDTIME PRN 07/20/17 [History] atorvaSTATin [Lipitor] 10 mg PO BEDTIME 07/20/17 [History] Acetaminophen 500 mg PO Q6HR PRN 03/18/19 [History] Gabapentin [Neurontin] 100 mg PO TID PRN 03/18/19 [History] Past Medical History HEENT History: Reports: Macular Degeneration Other HEENT History: Upper dentures Cardiovascular History: Reports: High Cholesterol, Hypertension Gastrointestinal History: Reports: Diverticulosis, GERD, GI Bleed Genitourinary History: Reports: BPH, Renal Disease, Other (See Below) Other Genitourinary History: DX of prostate cancer. Nodule on prostate. Kidney disease. HX of amyloidosis, had stem cell transplant. Erectile dysfunction Musculoskeletal History: Reports: Osteoarthritis, Other (See Below) Other Musculoskeletal History: shoulder dislocation. 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 Neurological History: Reports: None Psychiatric History: Reports: None Endocrine/Metabolic History: Reports: None Hematologic History: Reports: Anemia Dermatologic History: Reports: None - Infectious Disease History Infectious Disease History: Reports: Mumps - Past Surgical History HEENT Surgical History: Reports: None Respiratory Surgical History: Reports: None GI Surgical History: Reports: None Male Surgical History: Reports: None Musculoskeletal Surgical History: Reports: Other (See Below) Other Musculoskeletal Surgeries/Procedures:: Ankle surgery in 1999, has pin in ankle Oncologic Surgical History: Reports: Other (See Below) Social & Family History - Family History Family Medical History: No Pertinent Family History - Tobacco Use Tobacco Use Status *Q: Never Tobacco User Second Hand Smoke Exposure: No - Caffeine Use Caffeine Use: Reports: Coffee, Tea Caffeine Use Comment: at least 4 cups daily - Living Situation & Occupation Living situation: Reports: , Alone Occupation: Retired ED ROS GENERAL - Review of Systems Review Of Systems: Comprehensive ROS is negative, except as noted in HPI. ED EXAM, GI/ABD - Physical Exam Exam: See Below Exam Limited By: No Limitations General Appearance: Alert, WD/WN, Moderate Distress Eyes: Bilateral: Normal Appearance, EOMI Ears: Normal External Exam, Normal Canal, Hearing Grossly Normal, Normal TMs Nose: Normal Inspection, Normal Mucosa, No Blood Throat/Mouth: Normal Inspection, Normal Lips, Normal Teeth, Normal Gums, Normal Oropharynx, Normal Voice, No Airway Compromise Head: Atraumatic, Normocephalic Neck: Normal Inspection, Supple, Non-Tender, Full Range of Motion Respiratory/Chest: No Respiratory Distress, Lungs Clear, Normal Breath Sounds, No Accessory Muscle Use, Chest Non-Tender Cardiovascular: Normal Peripheral Pulses, Regular Rate, Rhythm, No Edema, No Gallop, No JVD, No Murmur, No Rub GI/Abdominal Exam: Normal Bowel Sounds, Soft, Non-Tender, No Organomegaly, No Distention, No Abnormal Bruit, No Mass, Pelvis Stable (Male) Exam: Deferred Rectal (Males) Exam: Normal Exam, Normal Rectal Tone, Prostate Normal, Heme - Stool Back Exam: Normal Inspection, Full Range of Motion, NT Extremities: Normal Inspection, Normal Range of Motion, Non-Tender, Normal Capillary Refill, No Pedal Edema Neurological: Alert, Oriented, CN II-XII Intact, Normal Cognition, Normal Gait, Normal Reflexes, No Motor/Sensory Deficits Psychiatric: Normal Affect, Normal Mood Skin Exam: Warm, Dry, Intact, Normal Color, No Rash Lymphatic: No Adenopathy Course - Vital Signs Last Recorded V/S: Last Vital Signs Temp 96.9 F 01/10/21 00:53 Pulse 62 01/10/21 00:53 Resp 18 01/10/21 00:53 BP 140/110 H 01/10/21 00:53 Pulse Ox 98 01/10/21 00:53 - Orders/Labs/Meds Labs: Laboratory Tests 01/10/21 01/10/21 Range/Units 00:50 00:50 WBC 10.0 (5.0-10.0) 10^3/uL RBC 3.25 L (4.6-6.2) 10^6/uL Hgb 10.8 L (14.0-18.0) g/dL Hct 33.4 L (40.0-54.0) % MCV 102.8 H (80-100) fL MCH 33.2 (27.0-34.0) pg MCHC 32.3 L (33.0-35.0) g/dL Plt Count 172 (150-450) 10^3/uL Neut % (Auto) 46.5 (42.2-75.2) % Lymph % (Auto) 39.2 (20.5-50.1) % [place] % (Auto) 7.4 (2-8) % Eos % (Auto) 6.7 H (1.0-3.0) % Baso % (Auto) 0.2 (0.0-1.0) % Sodium 147 H (136-145) mmol/L Potassium 3.9 (3.5-5.1) mmol/L Chloride 109 H (98-107) mmol/L Carbon Dioxide 26 (21-32) mmol/L Anion Gap 15.9 H (7-13) mEq/L BUN 39 H (7-18) mg/dL Creatinine 2.03 H (0.70-1.30) mg/dL Est Cr Clr Drug Dosing 26.82 mL/min Estimated GFR (MDRD) 32 BUN/Creatinine Ratio 19.2 (No establ ref range) Glucose 116 H (70-99) mg/dL Calcium 8.7 (8.5-10.1) mg/dL Total Bilirubin 0.3 (0.2-1.0) mg/dL AST 19 (15-37) U/L ALT 31 (16-63) U/L Alkaline Phosphatase 97 (46-116) U/L Total Protein 6.4 (6.4-8.2) g/dL Albumin 3.3 L (3.4-5.0) g/dL Globulin 3.1 Albumin/Globulin Ratio 1.06 Meds: Medications Discontinued Medications Generic Name Dose Route Start Last Admin Trade Name Freq PRN Reason Stop Dose Admin Ondansetron HCl 4 mg 01/10/21 00:55 01/10/21 01:03 Ondansetron 4 Mg/2 Ml Sdv IVPUSH 01/10/21 00:56 4 mg ONETIME ONE Administration Departure - Departure Time of Disposition: 01:23 Disposition: Home, Self-Care 01 Condition: Fair Clinical Impression: Gastroenteritis - Discharge Information *PRESCRIPTION DRUG MONITORING PROGRAM REVIEWED*: Not Applicable *COPY OF PRESCRIPTION DRUG MONITORING REPORT IN PATIENT VONDA: Not Applicable Instructions: Food Poisoning, [id number] Forms: ED Department Discharge Care Plan Goals: The patient was advised of the examination and lab results during the visit. The patient was given an IV dose of Zofran for his nausea. The patient was encouraged to stick to a BRAT diet over the next 24 hours (bananas, rice, meagan lesauce and toast). If the patient has any additional symptoms or concerns, the patient should either return to the emergency department or visit his primary care facility. Sepsis Event Note (ED) - Focused Exam Vital Signs: Vital Signs Temp Pulse Resp BP Pulse Ox 01/10/21 00:53 96.9 F 62 18 140/110 H 98
== END 2021-01-10 01:37 | disposition home or self-care (01) ==
LOC: DL.ED 00:39
DX: K52.9 Noninfective gastroenteritis and colitis, unspecified (principal); I10 Essential (primary) hypertension; M19.90 Unspecified osteoarthritis, unspecified site; D64.9 Anemia, unspecified; E78.00 Pure hypercholesterolemia, unspecified; Z79.899 Other long term (current) drug therapy
CPT/HCPCS: 36415; 80053; 82272; 85025; 96374; 99283; 99284; J2405

== ENCOUNTER 2021-03-05 13:27 | Emergency (ER) | payer MEDICARE, OTHER ==
--- NOTE | 2021-03-05 13:35 | EDM.PDOC ---
ED HPI GENERAL MEDICAL PROBLEM - General Chief Complaint: Gastrointestinal Problem Stated Complaint: IN BY AMBULANCE Time Seen by Provider: 03/05/21 13:30 Source of Information: Reports: Patient History Limitations: Reports: No Limitations - History of Present Illness INITIAL COMMENTS - FREE TEXT/NARRATIVE: 80 y/o M c/o NV for 1 week. Pt also c/o abdominal fullness for the same duration as well as L flank pain. Reports normal bowel movements today. Denies blood in stool, or urine, fever, cough, chills, drugs, etoh, gordillo, vision prob, cp, ext pn. Onset: Gradual - Related Data Allergies Allergy/AdvReac Type Severity Reaction Status Date / Time No Known Allergies Allergy Verified 03/05/21 13:27 Home Meds: Home Meds Jakob/Vit B12/Folic Acid/Vit B6 [Folic Acid-Vit B6-Vit B12 Tab] 1 mg PO DAILY 09/30/14 [History] RX: Carboxymethylcellulos/Glycerin [Refresh Optive Eye Drops] 1 drop EYEBOTH Q2HR PRN 09/30/14 [History] RX: Ferrous Sulfate 325 mg PO BIDM 09/30/14 [History] RX: Losartan [Cozaar] 50 mg PO DAILY 09/30/14 [History] RX: Multivitamin [Multivitamins] 1 tab PO DAILY 09/30/14 [History] atorvaSTATin [Lipitor] 10 mg PO BEDTIME 07/20/17 [History] RX: Acetaminophen 500 mg PO Q6HR PRN 03/18/19 [History] Ascorbic Acid [Vitamin C] 250 mg PO DAILY 03/05/21 [History] Fluticasone Propionate [Flonase Allergy Relief] 1 spray NS BID 03/05/21 [History] Montelukast [Singulair] 10 mg PO DAILY 03/05/21 [History] RX: Atropine/Diphenoxylate [Diphenoxylate-Atropine] 1 tab PO QID PRN 03/05/21 [History] RX: Donepezil HCl 10 mg PO BEDTIME 03/05/21 [History] RX: Mirtazapine 15 mg PO DAILY 03/05/21 [History] ondansetron HCL [Ondansetron HCl] 8 mg PO Q8H 03/05/21 [History] Past Medical History HEENT History: Reports: Macular Degeneration Other HEENT History: Upper dentures Cardiovascular History: Reports: High Cholesterol, Hypertension Gastrointestinal History: Reports: Diverticulosis, GERD, GI Bleed Genitourinary History: Reports: BPH, Renal Disease, Other (See Below) Other Genitourinary History: DX of prostate cancer. Nodule on prostate. Kidney disease. HX of amyloidosis, had stem cell transplant. Erectile dysfunction Musculoskeletal History: Reports: Osteoarthritis, Other (See Below) Other Musculoskeletal History: shoulder dislocation. 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 Neurological History: Reports: None Psychiatric History: Reports: None Endocrine/Metabolic History: Reports: None Hematologic History: Reports: Anemia Dermatologic History: Reports: None - Infectious Disease History Infectious Disease History: Reports: Mumps - Past Surgical History HEENT Surgical History: Reports: None Respiratory Surgical History: Reports: None GI Surgical History: Reports: None Male Surgical History: Reports: None Musculoskeletal Surgical History: Reports: Other (See Below) Other Musculoskeletal Surgeries/Procedures:: Ankle surgery in 1999, has pin in ankle Oncologic Surgical History: Reports: Other (See Below) Social & Family History - Family History Family Medical History: No Pertinent Family History - Caffeine Use Caffeine Use: Reports: Coffee, Tea Caffeine Use Comment: at least 4 cups daily - Living Situation & Occupation Living situation: Reports: , Alone Occupation: Retired ED ROS GENERAL - Review of Systems Review Of Systems: Comprehensive ROS is negative, except as noted in HPI. ED EXAM, GI/ABD - Physical Exam Exam: See Below Exam Limited By: No Limitations General Appearance: Alert, No Apparent Distress Throat/Mouth: Normal Inspection, Normal Lips, Normal Teeth, Normal Gums, Normal Oropharynx, Normal Voice, No Airway Compromise Head: Atraumatic, Normocephalic Neck: Normal Inspection, Supple, Non-Tender, Full Range of Motion Respiratory/Chest: No Respiratory Distress, Lungs Clear, Normal Breath Sounds Cardiovascular: Normal Peripheral Pulses GI/Abdominal Exam: Soft, Tender (tenderness to the lower abd and L flank) (Male) Exam: Deferred Rectal (Males) Exam: Deferred Back Exam: Normal Inspection, Full Range of Motion Extremities: Normal Inspection, Normal Range of Motion, Non-Tender, Normal Capillary Refill, No Pedal Edema Neurological: Alert, Oriented, CN II-XII Intact, Normal Cognition, Normal Gait, Normal Reflexes, No Motor/Sensory Deficits Psychiatric: Normal Affect, Normal Mood Skin Exam: Warm, Dry, Intact Course - Vital Signs Last Recorded V/S: Last Vital Signs Temp 98.9 F 03/05/21 14:59 Pulse 72 03/05/21 14:59 Resp 18 03/05/21 14:59 BP 139/84 03/05/21 14:59 Pulse Ox 96 03/05/21 14:59 - Orders/Labs/Meds Orders: Active Orders 24 hr Category Date Time Status CORONAVIRUS COVID-19 JAMILA [MOLEC] Stat Lab 03/05/21 15:07 Ordered Labs: Laboratory Tests 03/05/21 03/05/21 03/05/21 Range/Units 13:39 13:39 13:39 WBC 6.5 (5.0-10.0) 10^3/uL RBC 3.45 L (4.6-6.2) 10^6/uL Hgb 11.6 L (14.0-18.0) g/dL Hct 35.4 L (40.0-54.0) % MCV 102.6 H (80-100) fL MCH 33.6 (27.0-34.0) pg MCHC 32.8 L (33.0-35.0) g/dL Plt Count 167 (150-450) 10^3/uL Neut % (Auto) 69.5 (42.2-75.2) % Lymph % (Auto) 18.8 L (20.5-50.1) % [place] % (Auto) 6.0 (2-8) % Eos % (Auto) 5.2 H (1.0-3.0) % Baso % (Auto) 0.5 (0.0-1.0) % Sodium 144 (136-145) mmol/L Potassium 5.0 (3.5-5.1) mmol/L Chloride 106 (98-107) mmol/L Carbon Dioxide 27 (21-32) mmol/L Anion Gap 16.0 H (7-13) mEq/L BUN 25 H (7-18) mg/dL Creatinine 1.85 H (0.70-1.30) mg/dL Est Cr Clr Drug Dosing 28.24 mL/min Estimated GFR (MDRD) 35 BUN/Creatinine Ratio 13.5 (No establ ref range) Glucose 113 H (70-99) mg/dL Lactic Acid 1.3 (0.4-2.0) mmol/L Calcium 9.6 (8.5-10.1) mg/dL Phosphorus 2.8 (2.6-4.7) mg/dL Magnesium 2.5 H (1.8-2.4) mg/dL Total Bilirubin 0.4 (0.2-1.0) mg/dL AST 17 (15-37) U/L ALT 23 (16-63) U/L Alkaline Phosphatase 89 (46-116) U/L Total Protein 7.3 (6.4-8.2) g/dL Albumin 3.7 (3.4-5.0) g/dL Globulin 3.6 Albumin/Globulin Ratio 1.0 Amylase 124 H (25-115) U/L Lipase 267 (73-393) U/L TSH, Ultra Sensitive 2.08 (0.36-3.74) uIU/mL Urine Color (YELLOW) Urine Appearance (CLEAR) Urine pH (5.0-9.0) Ur Specific [place] (1.005-1.030) Urine Protein (NEGATIVE) Urine Glucose (UA) (NEGATIVE) Urine Ketones (NEGATIVE) Urine Occult Blood (NEGATIVE) Urine Nitrite (NEGATIVE) Urine Bilirubin (NEGATIVE) Urine Urobilinogen (0.2-1.0) mg/dL Ur Leukocyte Esterase (NEGATIVE) Urine Opiates Screen (NEGATIVE) Ur Oxycodone Screen (NEGATIVE) Urine Methadone Screen (NEGATIVE) Ur Barbiturates Screen (NEGATIVE) U Tricyclic Antidepress (NEGATIVE) Ur Phencyclidine Scrn (NEGATIVE) Ur Amphetamine Screen (NEGATIVE) U Methamphetamines Scrn (NEGATIVE) Urine MDMA Screen (NEGATIVE) U Benzodiazepines Scrn (NEGATIVE) Urine Cocaine Screen (NEGATIVE) U Marijuana (THC) Screen (NEGATIVE) 03/05/21 03/05/21 Range/Units 15:07 15:07 WBC (5.0-10.0) 10^3/uL RBC (4.6-6.2) 10^6/uL Hgb (14.0-18.0) g/dL Hct (40.0-54.0) % MCV (80-100) fL MCH (27.0-34.0) pg MCHC (33.0-35.0) g/dL Plt Count (150-450) 10^3/uL Neut % (Auto) (42.2-75.2) % Lymph % (Auto) (20.5-50.1) % [place] % (Auto) (2-8) % Eos % (Auto) (1.0-3.0) % Baso % (Auto) (0.0-1.0) % Sodium (136-145) mmol/L Potassium (3.5-5.1) mmol/L Chloride (98-107) mmol/L Carbon Dioxide (21-32) mmol/L Anion Gap (7-13) mEq/L BUN (7-18) mg/dL Creatinine (0.70-1.30) mg/dL Est Cr Clr Drug Dosing mL/min Estimated GFR (MDRD) BUN/Creatinine Ratio (No establ ref range) Glucose (70-99) mg/dL Lactic Acid (0.4-2.0) mmol/L Calcium (8.5-10.1) mg/dL Phosphorus (2.6-4.7) mg/dL Magnesium (1.8-2.4) mg/dL Total Bilirubin (0.2-1.0) mg/dL AST (15-37) U/L ALT (16-63) U/L Alkaline Phosphatase (46-116) U/L Total Protein (6.4-8.2) g/dL Albumin (3.4-5.0) g/dL Globulin Albumin/Globulin Ratio Amylase (25-115) U/L Lipase (73-393) U/L TSH, Ultra Sensitive (0.36-3.74) uIU/mL Urine Color Yellow (YELLOW) Urine Appearance Clear (CLEAR) Urine pH 7.5 (5.0-9.0) Ur Specific [place] 1.015 (1.005-1.030) Urine Protein Negative (NEGATIVE) Urine Glucose (UA) Negative (NEGATIVE) Urine Ketones Negative (NEGATIVE) Urine Occult Blood Negative (NEGATIVE) Urine Nitrite Negative (NEGATIVE) Urine Bilirubin Negative (NEGATIVE) Urine Urobilinogen 0.2 (0.2-1.0) mg/dL Ur Leukocyte Esterase Negative (NEGATIVE) Urine Opiates Screen Negative (NEGATIVE) Ur Oxycodone Screen Negative (NEGATIVE) Urine Methadone Screen Negative (NEGATIVE) Ur Barbiturates Screen Negative (NEGATIVE) U Tricyclic Antidepress Negative (NEGATIVE) Ur Phencyclidine Scrn Negative (NEGATIVE) Ur Amphetamine Screen Negative (NEGATIVE) U Methamphetamines Scrn Negative (NEGATIVE) Urine MDMA Screen Negative (NEGATIVE) U Benzodiazepines Scrn Negative (NEGATIVE) Urine Cocaine Screen Negative (NEGATIVE) U Marijuana (THC) Screen Negative (NEGATIVE) Meds: Medications Discontinued Medications Generic Name Dose Route Start Last Admin Trade Name Aleida PRN Reason Stop Dose Admin Iopamidol 100 ml 03/05/21 14:45 Iopamidol 612 Mg/Ml 100 Ml Bottle IVPUSH 03/05/21 14:46 ONETIME ONE - Re-Assessments/Exams Free Text/Narrative Re-Assessment/Exam: 03/05/21 16:06 Labs and imaging do not provide any diagnosis as to the cause of the pts sympt oms. At this time the pt is stable, and would like to leave. I will discharge him home to follow up with his PCP early next week. Departure - Departure Time of Disposition: 16:10 Disposition: Home, Self-Care 01 Condition: Good Clinical Impression: Nonspecific abdominal pain Vomiting Qualifiers: Vomiting type: unspecified Vomiting Intractability: non-intractable Nausea presence: with nausea Qualified Code(s): R11.2 - Nausea with vomiting, unspecified - Discharge Information *PRESCRIPTION DRUG MONITORING PROGRAM REVIEWED*: Not Applicable *COPY OF PRESCRIPTION DRUG MONITORING REPORT IN PATIENT VONDA: Not Applicable Instructions: Abdominal Pain, Adult, [id number] Forms: ED Department Discharge Additional Instructions: Continue to use your zofran prescription as directed. Follow up with your primary care facility if your symptoms do not resolve in 10 days. If any new symptoms or concerns develop contact your primary care facility or return to the ER. Sepsis Event Note (ED) - Focused Exam Vital Signs: Vital Signs Temp Pulse Resp BP Pulse Ox 03/05/21 14:59 98.9 F 72 18 139/84 96 03/05/21 13:28 95.5 F L 67 20 124/78 99 - My Orders Last 24 Hours: My Active Orders 03/05/21 15:07 CORONAVIRUS COVID-19 JAMILA [MOLEC] Stat - Assessment/Plan Last 24 Hours: My Active Orders 03/05/21 15:07 CORONAVIRUS COVID-19 JAMILA [MOLEC] Stat
[2021-03-05] MEDS ORDERED: Iopamidol 612 MG/ML 100 ML Bottle IVPUSH ONE (14:45)
[2021-03-05 15:01] VITALS: BP 139/84; PULSE 72
[2021-03-05 15:38] LABS: AMPHETAMINES,URINE NEGATIVE (NEGATIVE); BARBITURATES,URINE NEGATIVE (NEGATIVE); BENZODIAZEPINE,URINE NEGATIVE (NEGATIVE); MDMA (ECSTASY), URINE NEGATIVE (NEGATIVE); METHADONE,URINE NEGATIVE (NEGATIVE); METHAMPHETAMINES,URINE NEGATIVE (NEGATIVE); OPIATES,URINE NEGATIVE (NEGATIVE); OXYCODONE,URINE NEGATIVE (NEGATIVE); PHENCYCLIDINE,URINE NEGATIVE (NEGATIVE); TCA,URINE NEGATIVE (NEGATIVE)
--- NOTE | 2021-03-05 15:41 | CT ---
EXAMINATION: Abdomen Pelvis wo Cont SEX: Male AGE: 80 years CLINICAL HISTORY: 80-year-old male with diffuse lower abdominal pain (CT exam 27 January 2021 revealed "aortoiliac stent; huge hiatus hernia; small scarred kidneys; enlarged prostate gland; and pancolonic diverticulosis". Scan technique: Volume acquisition of data emergency unenhanced CT scan abdomen and pelvis obtained with patient lying supine on the Siemens multi slice scanner [place], [place]. All data archived in the PACS system for storage, reformatting axial/sagittal/coronal planes and study. Comparison exam December 2020. Interpretation: No new signs of abdominal malignancy, aortic rupture, acute peritonitis or mechanical bowel obstruction. 1. Long aorta iliac stent without new signs of perivascular or retroperitoneal bleed. 2. Lopez colonic diverticulosis without associated inflammatory "dirty" peritoneal fat, abscess or bowel obstruction. 3. 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 No bronchiectasis (aspiration), infiltrates or lower lobe atelectasis/collapse. No pleural effusions. 4. Osteoporosis; exaggerated lumbar lordosis; chronic L4-5 disc disease with hypertrophic spondylosis. 5. Cortical irregularity symmetric unenhanced kidneys without nephrolithiasis or signs of obstructive uropathy. Enlarged inhomogeneously dense prostate gland. Symmetrically distended normal appearing unenhanced urinary bladder. 6. No new pelvic or abdominal mass lesion. No mesenteric or retroperitoneal lymphadenopathy. No bowel obstruction. 7. Normal appendix RLQ. 8. No ascites or free intraperitoneal air.
== END 2021-03-05 16:36 | disposition home or self-care (01) ==
LOC: DL.ED 13:27
DX: R10.9 Unspecified abdominal pain (principal); R11.2 Nausea with vomiting, unspecified; E78.00 Pure hypercholesterolemia, unspecified; I10 Essential (primary) hypertension; K21.9 Gastro-esophageal reflux disease without esophagitis; Z79.899 Other long term (current) drug therapy; Z20.822 Contact with and (suspected) exposure to COVID-19
CPT/HCPCS: 36415; 74176; 80053; 80305; 81003; 82150; 83605; 83690; 83735; 84100; 84443; 85025; 99285; U0002

== ENCOUNTER 2021-07-29 10:21 | Emergency (ER) | payer MEDICARE, OTHER ==
[2021-07-29 10:41] VITALS: BP 120/69; PULSE 75
[2021-07-29 11:22] LABS: PTT,PARTIAL THROMBOPLSTIN TIME 24.6 SEC (22.0-34.0)
[2021-07-29 11:25] LABS: ANION GAP 13.4 mEq/L (7-13); CHLORIDE,CL 106 mmol/L (98-107); SODIUM,NA 142 mmol/L (136-145)
== END 2021-07-29 11:32 | disposition home or self-care (01) ==
LOC: DL.ED 10:21
DX: Z02.89 Encounter for other administrative examinations (principal); E78.00 Pure hypercholesterolemia, unspecified; I10 Essential (primary) hypertension; K21.9 Gastro-esophageal reflux disease without esophagitis; M19.90 Unspecified osteoarthritis, unspecified site; Z79.899 Other long term (current) drug therapy
CPT/HCPCS: 36415; 80053; 82150; 82272; 83605; 83690; 85025; 85610; 85730; 99282; 99283

== ENCOUNTER 2021-08-28 10:01 | Emergency (ER) | payer MEDICARE, OTHER ==
[2021-08-28 10:29] VITALS: BP 128/76; PULSE 62
[2021-08-28] MEDS ORDERED: Lidocaine 1% with EPINEPHrine 1:100,000 20 ML MDV INJECT ONE (11:22)
== END 2021-08-28 12:08 | disposition hospice, home (50) ==
LOC: DL.ED 10:01
DX: S05.42XA Penetrating wound of orbit with or without foreign body, left eye, initial encounter (principal); E78.00 Pure hypercholesterolemia, unspecified; I10 Essential (primary) hypertension; N40.0 Benign prostatic hyperplasia without lower urinary tract symptoms; K21.9 Gastro-esophageal reflux disease without esophagitis; Z79.899 Other long term (current) drug therapy; W18.09XA Striking against other object with subsequent fall, initial encounter
CPT/HCPCS: 12011; 70450; 99284; 99284-25

== ENCOUNTER 2022-01-10 13:44 | Emergency (ER) | payer MEDICARE, OTHER ==
[2022-01-10 20:14] VITALS: BP 121/82; PULSE 72
[2022-01-10 22:53] LABS: ANION GAP 16.5 mEq/L (7-13)
== END 2022-01-10 23:15 | disposition home or self-care (01) ==
LOC: DL.ED 13:44
DX: R10.9 Unspecified abdominal pain (principal); E78.00 Pure hypercholesterolemia, unspecified; I10 Essential (primary) hypertension; K21.9 Gastro-esophageal reflux disease without esophagitis; Z79.899 Other long term (current) drug therapy
CPT/HCPCS: 36415; 80053; 83605; 83735; 85025; 99283; 99284

== ENCOUNTER 2022-05-31 09:54 | Emergency (ER) | payer OTHER ==
[2022-05-31] MEDS ORDERED: Acetaminophen 325 MG Tab PO ONE (10:01)
[2022-05-31] MEDS ORDERED: Sodium Chloride 0.9% 1,000 ML IV ONE ×2 (10:02→11:03)
[2022-05-31] MEDS ORDERED: Sodium Chloride 0.9% 10 ML Syringe FLUSH PRN (10:03)
[2022-05-31 10:24] VITALS: BP 82/60; PULSE 111
[2022-05-31] MEDS ORDERED: Pantoprazole 40 MG Vial IVPUSH ONE (10:35)
[2022-05-31 10:40] LABS: ANION GAP 18.6 mEq/L (7-13); CHLORIDE,CL 107 mmol/L (98-107); SODIUM,NA 142 mmol/L (136-145)
[2022-05-31 10:44] LABS: ESTIMATED GFR 27 mL/min (>=60)
[2022-05-31] MEDS ORDERED: Pantoprazole 40 MG in Sodium Chloride 0.9% 100 ML IV SCH (10:45)
[2022-05-31] MEDS ORDERED: cefTRIAXone 1 GM Vial IVPUSH ONE (10:59)
[2022-05-31 11:06] LABS: CORONAVIRUS COVID-19 NAA NEGATIVE (NEGATIVE); RESPIRATORY SYNCYTIAL VIR NAA NEGATIVE (NEGATIVE)
[2022-05-31] MEDS ORDERED: Azithromycin 500 MG in Sodium Chloride 0.9% 250 ML IV ONE (11:33)
== END 2022-05-31 13:24 ==
LOC: DL.ED 09:54
DX: A41.9 Sepsis, unspecified organism (principal); J18.9 Pneumonia, unspecified organism; R65.21 Severe sepsis with septic shock; N17.9 Acute kidney failure, unspecified; K92.2 Gastrointestinal hemorrhage, unspecified; R00.0 Tachycardia, unspecified; E78.00 Pure hypercholesterolemia, unspecified; I12.9 Hypertensive chronic kidney disease with stage 1 through stage 4 chronic kidney disease, or unspecified chronic kidney disease; N18.9 Chronic kidney disease, unspecified; D63.1 Anemia in chronic kidney disease; M19.90 Unspecified osteoarthritis, unspecified site; Z79.899 Other long term (current) drug therapy; Z20.822 Contact with and (suspected) exposure to COVID-19
CPT/HCPCS: 0241U; 36415; 71045; 73110; 80053; 81003; 82150; 82272; 83605; 83690; 83880; 84145; 84484; 85025; 87040; 93005; 96361; 96365; 96366; 96368; 96375; 96376; 99285; A9270; C9113; J0456; J0696; J3490; J7030; J7050

== ENCOUNTER 2022-12-11 12:03 | Emergency (ER) | payer MEDICARE, OTHER ==
[2022-12-11 13:14] VITALS: BP 128/90; PULSE 69
== END 2022-12-11 14:49 | disposition home or self-care (01) ==
LOC: DL.ED 12:03
DX: Z11.1 Encounter for screening for respiratory tuberculosis (principal); E78.00 Pure hypercholesterolemia, unspecified; I10 Essential (primary) hypertension
CPT/HCPCS: 71046; 99283; 99284

== ENCOUNTER 2023-11-18 01:31 | Emergency (ER) | payer MEDICARE ==
[2023-11-18 02:01] LABS: BASOPHILS PERCENT AUTO 0.3 % (0.0-1.0); EOSINOPHILS PERCENT AUTO 3.6 % (1.0-3.0); HEMATOCRIT 25.9 % (40.0-54.0); HEMOGLOBIN 8.4 g/dL (14.0-18.0); LYMPHOCYTES PERCENT AUTO 30.5 % (20.5-50.1); MEAN CORPUSCULAR HEMOGLOBIN 34.4 pg (27.0-34.0); MEAN CORPUSCULAR HGB CONC 32.4 g/dL (33.0-35.0); MEAN CORPUSCULAR VOLUME 106.1 fL (80-100); MONOCYTES PERCENT AUTO 8.2 % (2-8); NEUTROPHILS PERCENT AUTO 57.4 % (42.2-75.2); PLATELET COUNT,PLT 142 10^3/uL (150-450); RED BLOOD CELL COUNT 2.44 10^6/uL (4.6-6.2); WHITE BLOOD CELL COUNT,WBC 6.5 10^3/uL (5.0-10.0)
[2023-11-18 02:19] LABS: PROTHROMBIN TIME 10.4 SEC (9.0-12.0); PTT,PARTIAL THROMBOPLSTIN TIME 24.1 SEC (22.0-34.0)
[2023-11-18 02:21] LABS: ALANINE AMINOTRANSFERASE,ALT 12 U/L (16-63); ALBUMIN 2.7 g/dL (3.4-5.0); ALKALINE PHOSPHATASE 87 U/L (46-116); ANION GAP 11.9 mEq/L (7-13); ASPARTATE AMNIOTRANSFERASE,AST 9 U/L (15-37); BILIRUBIN TOTAL 0.3 mg/dL (0.2-1.0); BLOOD UREA NITROGEN,BUN 27 mg/dL (7-18); BUN/CREATININE RATIO 14.9 (No establ ref range); CALCIUM 8.5 mg/dL (8.5-10.1); CARBON DIOXIDE,CO2 24 mmol/L (21-32); CHLORIDE,CL 110 mmol/L (98-107); CREATININE 1.81 mg/dL (0.70-1.30); GLUCOSE RANDOM 87 mg/dL (70-99); MAGNESIUM 2.1 mg/dL (1.8-2.4); POTASSIUM,K 3.9 mmol/L (3.5-5.1); PROTEIN TOTAL,TP 5.5 g/dL (6.4-8.2); SODIUM,NA 142 mmol/L (136-145)
[2023-11-18 02:22] LABS: A/G RATIO 0.96; ESTIMATED GFR 36 mL/min (>=60)
[2023-11-18] MEDS: Sodium Chloride 0.9% 10 ML Syringe FLUSH PRN (02:37)
[2023-11-18] MEDS: fentaNYL 100 MCG/2 ML SDV IVPUSH ONE (02:57)
[2023-11-18 03:58] LABS: APPEARANCE,URINE CLEAR (CLEAR); BILIRUBIN,URINE NEGATIVE (NEGATIVE); COLOR,URINE YELLOW (YELLOW); GLUCOSE,URINE NEGATIVE (NEGATIVE); KETONES,URINE NEGATIVE (NEGATIVE); LEUKOCYTE ESTERASE,URINE NEGATIVE (NEGATIVE); NITRITE,URINE NEGATIVE (NEGATIVE); OCCULT BLOOD,URINE TRACE-INTACT (NEGATIVE); PH,URINE 5.5 (5.0-9.0); PROTEIN,URINE NEGATIVE (NEGATIVE); UROBILINOGEN,URINE 0.2 mg/dL (0.2-1.0)
[2023-11-18 04:07] LABS: AMORPHOUS SEDIMENT,URINE RARE /HPF (NOT SEEN); BACTERIA,URINE RARE /HPF (0-FEW/HPF); EPITHELIAL CELLS,URINE RARE /HPF (NOT SEEN); MUCUS,URINE RARE /LPF (NOT SEEN); WBC,URINE 0-5 /HPF (0-5/HPF)
[2023-11-18 04:44] VITALS: BP 80/56; PULSE 69
== END 2023-11-18 04:39 | disposition home or self-care (01) ==
LOC: DL.ED 01:31
DX: S32.432A Displaced fracture of anterior column [iliopubic] of left acetabulum, initial encounter for closed fracture (principal); I95.2 Hypotension due to drugs; T40.415A Adverse effect of fentanyl or fentanyl analogs, initial encounter; I12.9 Hypertensive chronic kidney disease with stage 1 through stage 4 chronic kidney disease, or unspecified chronic kidney disease; N18.30 Chronic kidney disease, stage 3 unspecified; S70.02XA Contusion of left hip, initial encounter; E78.00 Pure hypercholesterolemia, unspecified; K21.9 Gastro-esophageal reflux disease without esophagitis; Z79.899 Other long term (current) drug therapy; W19.XXXA Unspecified fall, initial encounter
CPT/HCPCS: 36415; 51702; 72192; 73502; 80053; 81001; 83735; 85025; 85610; 85730; 96374; 99285; J3010; J3490